=== PATIENT | female | born 1970 | race Caucasian/White ===

== ENCOUNTER 2025-08-08 13:29 | Emergency (ER) | payer BC, SELFPAY ==
[2025-08-08 13:39] VITALS: BP 144/90
[2025-08-08 14:43] LABS: Hematocrit 39.9 % (37.0-47.0); Hemoglobin 13.6 g/dL (12.0-16.0); Mean Corp Hgb Conc. 34.1 g/dL (33.0-37.0); Mean Corpuscular Volume 91.1 fL (81.0-99.0); Nucleated Red Blood Cells % 0 %; Platelet Count 347 10^3/uL (130-400); Red Cell Dist. Width 12.8 % (11.5-14.5)
[2025-08-08 14:45] LABS: Urine Character Clear (Clear)
[2025-08-08 14:54] LABS: Blood Urea Nitrogen 12 mg/dl (7-17); Calcium 9.9 mg/dl (8.4-10.2); Carbon Dioxide 27 mmol/L (22-30); Chloride 103 mmol/L (98-107); Glucose 100 mg/dl (70-99); Potassium 4.2 mmol/L (3.5-5.1); Sodium 137 mmol/L (135-145); eGFR > 60.00
--- NOTE | 2025-08-08 16:15 | ED.GENMED ---
History of Present Illness
<Eboni Mello PA-C - Last Filed: 08/11/25 10:04>
General
Chief Complaint: Anxiety
Time Seen by Provider: 08/08/25 13:57
History of Present Illness
History of Present Illness:
Jennifer is a 55-year-old female with past medical history of 'thyroid disorder' not on any medications who presents with sudden onset of paranoia and anxiety several days ago. reports this has been worsening since its onset. She is
skeptical of everyone and every situation. Denies suicidal ideations, thoughts of self-harm or homicidal ideations. This never occurred before. Prior to this patient was well and working full-time corporate job.
Phy Exam
<Eboni Mello PA-C - Last Filed: 08/11/25 10:04>
General Physical Exam
General Presentation: well appearing and no apparent distress
General Skin: warm and dry
General Habitus: normal
General Mental: alert
General Hydration: appears well hydrated
ENT Exam
ENT Exam: EOMI, pharynx normal, neck supple and normocephalic
Eye Exam
Eye Exam: PERRL, cornea clear and conjunctiva normal
Cardiovascular Exam
Cardiovascular Exam: regular rate/rhythm, no edema, no murmur and normal peripheral pulses
Pulmonary Exam
Pulmonary Exam: lungs clear, no respiratory distress, no rales, no crackles, no rhonchi, no stridor, no wheezing and no cough
Gastrointestinal Exam
Gastrointestinal Exam: normal bowel sounds, non tender, soft, no organomegaly, no pulsatile mass and non distended
Neurological Exam
Neurological Exam: alert, oriented x3, no motor deficits and speech normal
Musculoskeletal Exam
Musculoskeletal Exam: full ROM and no edema
Skin Exam
Skin Exam: normal color, warm/dry, no rash and no petechia
Psychiatric Exam
Psychiatric Exam: anxious, paranoia and other (Withdrawn)
Course
<Eboni Mello PA-C - Last Filed: 08/11/25 10:04>
Orders/Labs/Results
Orders:
Orders
08/08/25 13:30
EKG [Electrocardiogram (*1)] Urgent
Reason for Study: Chest Pain
08/08/25 13:31
EKG- Treatment ONCE
08/08/25 14:06
Crisis Consult Urgent
Reason for Consult: anxious, paranoia
08/08/25 14:07
Lorazepam [Ativan] 0.5 mg PO NOW STA
08/08/25 14:30
Alcohol Urgent
Basic Metabolic Panel Urgent
Complete Blood Count/With Diff Urgent
Drug Screen, Urine [Urine Drug Abuse Screen] Urgent
Date Specimen was Collected: 08/08/25
Time Specimen was Collected: 14:20
TSH Reflex To Free T4 Urgent
Urinalysis Reflex To Culture Urgent
Date Specimen was Collected: 08/08/25
Time Specimen was Collected: 14:20
Urine Microscopic Reflex Cult Urgent
08/08/25 15:41
CT Head W/o Iv Contrast Urgent
Comment:
Reason For Exam: psychosis
08/08/25 17:00
Lorazepam [Ativan] 0.5 mg .ROUTE .STK-MED ONE
08/08/25 17:07
Add On- LAB Urgent
Tests Added?: ETOH
08/08/25 18:14
Sertraline HCl [Zoloft] 50 mg PO NOW STA
08/08/25 18:45
Risperidone [Risperdal] 1 mg PO NOW STA
08/08/25 18:57
CHELO, IgG Reflex to HEp-2 [S] Urgent
ESR [Erythrocyte Sed Rate] Urgent
Abnormal Lab Results
08/08/25
14:30
MCH 31.1 H pg
(27.0-31.0)
MPV 11.0 H fL
(7.4-10.4)
Neutrophils % 75.9 H %
(42.2-75.2)
Lymphocytes % 16.2 L %
(20.5-51.1)
Glucose 100 H mg/dl
(70-99)
Urine Ketones 2+ A
(Negative)
Ur Occult Blood Reflex 2+ A
(Negative)
Urine RBC 3-6 A /HPF
(0-2)
Urine Bacteria (Reflex) Few A
(Negative)
08/08/25 14:30
08/08/25 14:30
Vital Signs
Initial and Last Documented VS:
Initial Vital Signs
Temp Pulse Resp BP Pulse Ox
36.6 C 88 18 144/90 98
08/08/25 13:39 08/08/25 13:39 08/08/25 13:39 08/08/25 13:39 08/08/25 13:39
Last Documented Vital Signs
Temp Pulse Resp BP Pulse Ox
36.6 C 83 18 129/85 98
08/08/25 13:39 08/08/25 19:10 08/08/25 19:10 08/08/25 19:10 08/08/25 19:10
<Rj Warren MD - Last Filed: 08/08/25 18:30>
Orders/Labs/Results
Orders:
Orders
08/08/25 13:30
EKG [Electrocardiogram (*1)] Urgent
Reason for Study: Chest Pain
08/08/25 13:31
EKG- Treatment ONCE
08/08/25 14:06
Crisis Consult Urgent
Reason for Consult: anxious, paranoia
08/08/25 14:07
Lorazepam [Ativan] 0.5 mg PO NOW STA
08/08/25 14:30
Alcohol Urgent
Basic Metabolic Panel Urgent
Complete Blood Count/With Diff Urgent
Drug Screen, Urine [Urine Drug Abuse Screen] Urgent
Date Specimen was Collected: 08/08/25
Time Specimen was Collected: 14:20
TSH Reflex To Free T4 Urgent
Urinalysis Reflex To Culture Urgent
Date Specimen was Collected: 08/08/25
Time Specimen was Collected: 14:20
Urine Microscopic Reflex Cult Urgent
08/08/25 15:41
CT Head W/o Iv Contrast Urgent
Comment:
Reason For Exam: psychosis
08/08/25 17:00
Lorazepam [Ativan] 0.5 mg .ROUTE .STK-MED ONE
08/08/25 17:07
Add On- LAB Urgent
Tests Added?: ETOH
08/08/25 18:14
Sertraline HCl [Zoloft] 50 mg PO NOW STA
08/08/25 18:45
Risperidone [Risperdal] 1 mg PO NOW STA
08/08/25 18:57
CHELO, IgG Reflex to HEp-2 [S] Urgent
ESR [Erythrocyte Sed Rate] Urgent
Abnormal Lab Results
08/08/25
14:30
MCH 31.1 H pg
(27.0-31.0)
MPV 11.0 H fL
(7.4-10.4)
Neutrophils % 75.9 H %
(42.2-75.2)
Lymphocytes % 16.2 L %
(20.5-51.1)
Glucose 100 H mg/dl
(70-99)
Urine Ketones 2+ A
(Negative)
Ur Occult Blood Reflex 2+ A
(Negative)
Urine RBC 3-6 A /HPF
(0-2)
Urine Bacteria (Reflex) Few A
(Negative)
08/08/25 14:30
08/08/25 14:30
Vital Signs
Initial and Last Documented VS:
Initial Vital Signs
Temp Pulse Resp BP Pulse Ox
36.6 C 88 18 144/90 98
08/08/25 13:39 08/08/25 13:39 08/08/25 13:39 08/08/25 13:39 08/08/25 13:39
Last Documented Vital Signs
Temp Pulse Resp BP Pulse Ox
36.6 C 83 18 129/85 98
08/08/25 13:39 08/08/25 19:10 08/08/25 19:10 08/08/25 19:10 08/08/25 19:10
<Eboni Mello PA-C - Last Filed: 08/11/25 10:04>
MDM/Problems Addressed
Differential Diagnosis Includes:
Patient with new onset of paranoia and anxiety and psychosis like symptoms. Given sudden onset without any history basic labs obtained and negative for any abnormality, no evidence of infection on urinalysis, urine drug screen negative for any
illicit substances. CT head obtained for any acute intracranial pathology.
<Eboni Mello PA-C - Last Filed: 08/11/25 10:04>
*Pulse Oximetry
SaO2: 98
Oxygen Mode of Delivery: Room air
Patient hypoxic: no
*Critical Care Note
Total Time (30-74mins, 75-104mins- exclusive of procedures): Not Applicable
ED Attending Note
<Eboni Mello PA-C - Last Filed: 08/11/25 10:04>
-
Portions of this chart may have been created with voice recognition software.� Occasional wrong word or��sound alike� substitutions may have occurred due to the inherent limitations of voice recognition software.
<Rj Warren MD - Last Filed: 08/08/25 18:30>
ED Attending Note
Patient seen and examined by attending physician: Yes
ED Attending Note:
I have seen and evaluated the patient with a [id number] encounter. I have spoken to the advance practicer provider and involved in the medical history, the physical exam, medical decision making.
Evaluation and management service: agree unless noted differently below.
Results interpretation: agree unless noted differently below.
Focused HPI: 55-year-old female with no reported chronic medical issues presents with her boyfriend to the emergency department for evaluation of anxiety, paranoia and general change in affectation. Patient reports that over the past few days to a
week she has had increased anxiety, poor sleep and generally low energy. According to her boyfriend in addition to the symptoms she has been very paranoid�apparently she indicated that she was concerned her place of work ([employer]) was investigating
her and this paranoia eventually extended to concern about family members being involved. She has no history of psychiatric illness and has never had similar issues in the past which prompted boyfriend to urged her to come to the ER and she
ultimately agreed. She denies any drug or alcohol use. No suicidality or homicidal ideation. Denies hallucinations.
Physical exam: Awake and alert, resting comfortably and nontoxic-appearing. Vital signs are all within normal limits. Head is normocephalic and atraumatic. Her neck is supple without meningismus. Cranial nerves are intact 2 through 12, speech
fluid without dysarthria or aphasia, motor and sensory intact in all extremities. She has somewhat poor insight (could not recognize that her behavior is becoming a problem) but reasonable judgment (was willing to trust loved ones and seek care,
cooperative with ER assessment)
Medical Decision Makin-year-old female presents for evaluation of increased anxiety and paranoia over the past few days without a clear trigger. She has no history of psychiatric issues. Vitals and exam are as above. Medical workup including
CBC, CMP, drug screen all negative. CT head negative. She is not clinically encephalopathic this seems to be more of a mood/behavioral issue. Overall this picture seems most consistent with an acute psychiatric issue. We did discuss the case with
our crisis team as well as psychiatry to assess.
Case discussed with psychiatry suspect depression with psychotic features. Recommended starting patient on Risperdal 1 mg daily and Zoloft 50 mg daily. Recommended a few tabs of Ativan to be used as needed over the next few days during the stress
of the holiday which I think is not unreasonable although I did caution patient and family about long-term use. It sounds that she has used this on occasion in the past and times of high stress. Patient was offered psychiatric admission but
declined, feels more comfortable following up with psychiatry on an outpatient basis. Family to monitor and return with any issues.
Discharge Plan
Departure
Patient Disposition: Home (Routine Discharge)
Date of Disposition: 08/08/25
Time of Disposition: 18:16
Patient with high blood pressure during this ER visit?: Yes
Discharge Problem:
Depression, Paranoia
Instructions: Depression, Adult (DC)
Prescriptions:
New
risperidone [Risperdal] 1 mg tablet
1 mg PO HS 14 Days Qty: 14 1RF
sertraline [Zoloft] 50 mg tablet
50 mg PO DAILY 14 Days Qty: 14 1RF
lorazepam [Ativan] 0.5 mg tablet
0.5 mg PO BID PRN (Reason: anxiety) Qty: 5 0RF
Referrals:
UNKNOWN - PT DOES,NOT KNOW [Family Provider]
Activity Restrictions/Additional Instructions:
Please return with worsening symptoms, otherwise you should follow-up with psychiatry on an outpatient basis as discussed in the ER.
Interventions
Interventions:
*General Assessment Last Done: 08/08/25 13:39
*Neglect/Abuse Screening Last Done: 08/08/25 13:39
*ED COVID-19 Vaccine History Last Done: 08/08/25 19:10
*ED Influenza Vaccine History Last Done: 08/08/25 19:10
[facility] Risk Assessment Tool Last Done: 08/08/25 19:11
*Risk Screen - Suicide (C-SSRS) Last Done: 08/08/25 13:55
*Nursing Disposition Last Done: 08/08/25 19:11
ED-Psychological Assessment Last Done: 08/08/25 19:10
Discharge Date and Time
Discharge Date/Time: 08/08/25 19:12
Print Language: ARMENIAN
[2025-08-08] MEDS: ATIVAN 0.5 MG PO (17:02)
--- NOTE | 2025-08-08 18:09 | CS.PSYCHR ---
Consult Summary - Psychiatry
-
pt seen in consultation for complaint of new onset paranoia
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 Started with worried that her
performance at work was being judged, then that she was being watched, and now stating that her partner was in on it and was going to arrange for her to be arrested. No particular stressor, no issues of performance at work, home life ok (worried
about 24 yo son who lives in her apt, has ADHD and has not done as well in life as she might have liked) as well as suicide of father of her first born son now age 30--suicide happened while she was with him.
Pt initially denied prior psychiatric history, then mentions therapy following suicide of son's father, then mentions she had been started on various antidepressants ove the years by PCP (arian fierro sounded familiar.)
Past medical history significant for thyroid disease--took synthroid for a time, but stopped since numbers always ok
Currently going through menopause, hot flashes
Takes CBD gummies to help with sleep over past month
Sleep not good, appetite fair (had been on Wgovy and lost 20 lbs, stopped and has put some back on, has script to restart)
Born in [facility], has two sisters (one her twin) and a brother. All doing well. Father of heart disease in his 70's, mother 83 living in [facility] ok. They bicker.
On mental status exam pt is lying on stretcher covered with blankets (room is cold) worried look on her face. Near tears at times asking if this will ever go away. Thinks I might be in on the conspiracy. No cognitive impairment. +anhedonia, states
will feel guilty if she does not go to son's [employer] celebration.
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
Offered pt inpatient admission, she is hesitant. Will try outpatient route with zoloft 50 mg then 100 mg daily, risperdal 1 mg daily, 1 week of ativan 0.5 mg
Will contact her EAP to set up outpatient psychiatric care
Aware of need to return if symptoms worsen, partner will keep close tabs on her
No more gummies
[2025-08-08] MEDS: RISPERDAL 1 MG PO (19:06)
[2025-08-08 19:10] VITALS: BP 129/85
[2025-08-08] MEDS: ZOLOFT 50 MG PO (19:13)
[2025-08-11 13:49] LABS: ANA, IgG Reflex to HEp-2 None Detected (None Detected)
== END 2025-08-08 19:12 | disposition home or self-care (01) ==
LOC: EMR 13:29
PROVIDERS: Surgery Trauma Surgery; EMERGENCY PHYSICIAN Emergency Medicine
DX: F32.A Depression, unspecified (principal); F22 Delusional disorders
CPT/HCPCS: 99284; 70450; 80048; 80306; 81003; 81015; 82077; 84443; 85025; 85652; 86038; 93005